=== PATIENT | male | born 1930 | race Caucasian/White ===

== ENCOUNTER 2017-05-26 06:40 | Outpatient (CLI) | payer MEDICARE, BC ==
[~2017-05-26] VITALS: Ht 180.3 cm; Wt 90.7 kg
[~2017-05-26 06:40] MED LIST: ASPI1TAB PO; ATOR40TA75 PO; ENAL5TAB PO; FINA5TAB2 PO; FLOM5CAP PO; VITA500T PO
[2017-05-26] MEDS ORDERED: PROPOFOL 200 MG/20 ML VIAL As Ordered ONE (07:06)
[2017-05-26] MEDS ORDERED: LIDOCAINE 2% INJ 100 MG/5 ML SDV (FOR ANES.) As Ordered ONE (07:09)
[2017-05-26] MEDS ORDERED: NS 1,000 ML IV SCH (07:15)
--- NOTE | 2017-05-26 08:00 | ROOR ---
Patient Name: Jacky Vitale Procedure Date: 05/26/2017 7:39 AM Date of : 1930 Age: 86 Room: [facility] Gender: Male Note Status: Finalized Procedure: Colonoscopy Indications: High risk colon cancer surveillance: Personal history of colonic polyps Providers: Jossue Fair Jr, MD Referring MD: AARON BISHOP MD Requesting Provider: Medicines: Propofol per Anesthesia Complications: No immediate complications. Procedure: Pre-Anesthesia Assessment: - Prior to the procedure, a History and Physical was performed, and patient medications and allergies were reviewed. The patient is competent. The risks and benefits of the procedure and the sedation options and risks were discussed with the patient. All questions were answered and informed consent was obtained. Patient identification and proposed procedure were verified by the physician and the nurse in the pre-procedure area and in the procedure room. Mental Status Examination: alert and oriented. Airway Examination: normal oropharyngeal airway and neck mobility. Respiratory Examination: clear to auscultation. CV Examination: normal. ASA Grade Assessment: II - A patient with mild systemic disease. After reviewing the risks and benefits, the patient was deemed in satisfactory condition to undergo the procedure. The anesthesia plan was to use moderate sedation / analgesia (conscious sedation). Immediately prior to administration of medications, the patient was re-assessed for adequacy to receive sedatives. The heart rate, respiratory rate, oxygen saturations, blood pressure, adequacy of pulmonary ventilation, and response to care were monitored throughout the procedure. The physical status of the patient was re-assessed after the procedure. The Colonoscope was introduced through the anus and advanced to the cecum, identified by appendiceal orifice and ileocecal valve. The colonoscopy was performed without difficulty. The patient tolerated the procedure well. The quality of the bowel preparation was fair. Findings: The perianal and digital rectal examinations were normal. Pertinent negatives include normal sphincter tone, no palpable rectal lesions and no anal lesion or abnormality was detected. Multiple small and large-mouthed diverticula were found in the sigmoid colon. Scattered small and large-mouthed diverticula were found in the descending colon, transverse colon and ascending colon. Two polyps were found in the descending colon and transverse colon. The polyps were small in size. These polyps were removed with a hot snare. Resection and retrieval were complete. The rectum, recto-sigmoid colon, cecum, appendiceal orifice and ileocecal valve appeared normal. Impression: - Preparation of the colon was fair. - Diverticulosis in the sigmoid colon. - Diverticulosis in the descending colon, in the transverse colon and in the ascending colon. - Two small polyps in the descending colon and in the transverse colon, removed with a hot snare. Resected and retrieved. - The rectum, recto-sigmoid colon, cecum, appendiceal orifice and ileocecal valve are normal. Recommendation: - Discharge patient to home (ambulatory). - Repeat colonoscopy in 5 years for surveillance. Jossue Fair MD Jossue Fair Jr, MD 05/26/2017 8:00:09 AM This report has been signed electronically. Number of Addenda: 0 Note Initiated On: 05/26/2017 7:39 AM Estimated Blood Loss: Estimated blood loss: none.
[2017-05-26 08:25] VITALS: BP 146/66
== END 2017-05-26 08:26 | disposition home or self-care (01) ==
LOC: M OPP 06:40
PROVIDERS: ATTEND Surgery
DX: Z12.11 Encounter for screening for malignant neoplasm of colon (principal); Z86.010 Personal history of colon polyps; K63.5 Polyp of colon; K57.30 Diverticulosis of large intestine without perforation or abscess without bleeding; I10 Essential (primary) hypertension; E78.5 Hyperlipidemia, unspecified; R06.02 Shortness of breath; R06.83 Snoring; N40.1 Benign prostatic hyperplasia with lower urinary tract symptoms; M62.830 Muscle spasm of back; Z86.19 Personal history of other infectious and parasitic diseases; Z79.82 Long term (current) use of aspirin; Z79.899 Other long term (current) drug therapy; Z80.6 Family history of leukemia; Z80.7 Family history of other malignant neoplasms of lymphoid, hematopoietic and related tissues

== ENCOUNTER → 2017-12-28 | Outpatient (CLI) | payer MEDICARE, BC | LOC: M SMT 09:59 | DX: C61 Malignant neoplasm of prostate (principal) | CPT/HCPCS: 84153 ==

== ENCOUNTER → 2018-01-27 | Outpatient (CLI) | payer MEDICARE, BC | LOC: M WUC 10:29 | DX: R06.00 Dyspnea, unspecified (principal); R91.1 Solitary pulmonary nodule; J84.10 Pulmonary fibrosis, unspecified | CPT/HCPCS: 71046 ==

== ENCOUNTER → 2018-08-22 | Outpatient (CLI) | payer MEDICARE, BC ==
[~2018-08-22] MED LIST changes: +FLOM0.4C39 PO; -FLOM5CAP PO
[2018-08-23 14:37] LABS: PSA % FREE 16.1 % (.); PSA FREE 1.22 ng/mL; PSA TOTAL 7.6 ng/mL (0.0-4.0)
== END ==
LOC: M SMT 10:16
PROVIDERS: ATTEND Nurse Practitioner Women's Health
DX: R97.20 Elevated prostate specific antigen [PSA] (principal); N40.1 Benign prostatic hyperplasia with lower urinary tract symptoms

== ENCOUNTER → 2018-11-03 | Outpatient (CLI) | payer MEDICARE, BC ==
--- NOTE | 2018-11-03 20:35 | REP ---
LUMBOSACRAL SPINE: Five views of the lumbosacral spine performed. There is no compression fracture. There is no spondylolysis. There is slight retrolisthesis of L2 on L3 and L3 on L4 likely due to posterior facet arthropathy. There is moderate diffuse spurring. There is moderate disc space narrowing and subchondral sclerosis at all levels with vacuum phenomenon noted at L1-2, L3-4, L4-5 and L5-S1. There is sclerosis and spurring at the posterior facets of L4-5 and L5-S1. The posterior elements are intact. IMPRESSION: Diffuse moderate degenerative changes. Electronically Signed by Mann Zaragoza MD 11/04/2018 06:40 P
== END ==
LOC: M WUC 16:24
PROVIDERS: ATTEND Internal Medicine
DX: M51.37 Other intervertebral disc degeneration, lumbosacral region (principal); M25.78 Osteophyte, vertebrae

== ENCOUNTER → 2019-10-13 | Outpatient (REF) | payer MEDICARE, BC ==
[~2019-10-13] MED LIST changes: -ASPI1TAB PO; +ASPI81TA26 PO
[2019-10-13 15:58] LABS: APPEARANCE, URINE MANUAL CLEAR (CLEAR); COLOR, URINE MANUAL LT YELLOW (YELLOW)
[2019-10-13 15:59] LABS: BILIRUBIN, URINE MANUAL NEGATIVE (NEGATIVE); GLUCOSE, URINE (UA) MANUAL NEGATIVE (NEGATIVE); KETONE, URINE MANUAL NEGATIVE (NEGATIVE); LEUKOCYTE ESTERASE, URINE MAN NEGATIVE (NEGATIVE); NITRITE, URINE MANUAL NEGATIVE (NEGATIVE); PROTEIN, URINE MANUAL 3+ mg/dL (NEGATIVE); UROBILINOGEN, URINE MANUAL NORMAL (NORMAL)
[2019-10-13 16:00] LABS: BLOOD URINE MANUAL POSITIVE (NEGATIVE)
[2019-10-13 16:01] LABS: WBC, URINE 0-1 /hpf (0-3)
[2019-10-13 16:02] LABS: BACTERIA, URINE SMALL AMOUNT; MUCUS, URINE SMALL AMOUNT (NEGATIVE); SQUAMOUS EPITHELIAL CELL URINE SMALL AMOUNT /hpf (SMALL AMT)
== END ==
LOC: M LAB REF 11:02
PROVIDERS: ATTEND Physician Assistant
DX: N39.0 Urinary tract infection, site not specified (principal)

== ENCOUNTER 2020-03-08 15:00 | Emergency (ER) | payer MEDICARE, BC ==
[~2020-03-08 15:00] MED LIST changes: +VITA-243 PO; -VITA500T PO
[2020-04-04 14:29] LABS: BASO % 0.4 % (0.0-1.0); EOS % 0.3 % (0.0-3.0); HEMATOCRIT 45.8 % (42.0-52.0); HEMOGLOBIN 15.3 g/dl (13.5-17.5); MEAN CORPUSCULAR HEMOGLOBIN 31.4 pg (27.0-33.0); MEAN CORPUSCULAR HGB CONC 33.4 g/dl (32.0-36.5); MONO # 1.2 10^3/uL (0.0-0.8); MONO % 11.3 % (0.0-5.0); NEUTROPHILS # 8.6 10^3/uL (1.5-8.5); NEUTROPHILS % 78.7 % (36.0-66.0); PLATELET COUNT, AUTOMATED 182 10^3/uL (150-450); RED BLOOD COUNT 4.87 10^6/uL (4.30-6.10)
[2020-04-15 08:14] LABS: BLOOD UREA NITROGEN 16 MG/DL (7-18); CREATININE FOR GFR 1.08 MG/DL (0.70-1.30); GLOMERULAR FILTRATION RATE > 60.0 (>35)
== END 2020-03-08 22:52 | disposition home or self-care (01) ==
LOC: M ED 15:00
DX: N21.0 Calculus in bladder (principal); I10 Essential (primary) hypertension; E78.5 Hyperlipidemia, unspecified; N40.0 Benign prostatic hyperplasia without lower urinary tract symptoms; Z79.899 Other long term (current) drug therapy; Z79.82 Long term (current) use of aspirin

== ENCOUNTER → 2020-03-10 | Outpatient (CLI) | payer MEDICARE, BC ==
[~2020-03-10] MED LIST changes: +ENAL5TA PO; -ENAL5TAB PO
[2020-04-07 03:37] LABS: HEMATOCRIT 42.8 % (42.0-52.0); HEMOGLOBIN 13.9 g/dl (13.5-17.5); INR 1.09; MEAN CORPUSCULAR HEMOGLOBIN 30.8 pg (27.0-33.0); MEAN CORPUSCULAR HGB CONC 32.5 g/dl (32.0-36.5); MEAN CORPUSCULAR VOLUME 94.9 fl (80.0-96.0); PLATELET COUNT, AUTOMATED 187 10^3/uL (150-450); PROTHROMBIN TIME 14.4 SECONDS (11.8-14.0); RED BLOOD COUNT 4.51 10^6/uL (4.30-6.10); WHITE BLOOD COUNT 10.1 10^3/uL (4.0-10.0)
[2020-04-07 03:38] LABS: PARTIAL THROMBOPLASTIN TIME 36.3 SECONDS (25.0-38.4)
--- NOTE | 2020-05-02 11:10 | REP ---
CHEST X-RAY: 2-VIEWS HISTORY: Bladder stones. Preoperative testing. This report was delayed due to a protracted episode of computer network disruption experienced by this facility. COMPARISON: 08/17/2018. FINDINGS: There is coarse linear fibrosis in the left base. The lungs are otherwise well- inflated and free of infiltrate. Pleural angles are sharp. Cardiomediastinal silhouette is unremarkable. The aorta is somewhat calcific. There are degenerative changes in the thoracic spine. Pulmonary vasculature is not increased. IMPRESSION: No active disease. MTDD
[2020-06-02 14:49] LABS: GLUCOSE, FASTING SEE SEPARATE REPORT
== END ==
LOC: M LAB 14:32
PROVIDERS: ATTEND Urology
DX: Z01.818 Encounter for other preprocedural examination (principal); N21.0 Calculus in bladder
CPT/HCPCS: 51798; 71046; 80048; 85027; 85610; 85730; G0463

== ENCOUNTER 2020-03-13 13:40 | Day surgery (SDC) | payer MEDICARE, BC ==
[2020-03-13] MEDS ORDERED: ONDANSETRON 4MG/2ML VIAL As Ordered ONE (13:47)
[2020-03-13] MEDS ORDERED: fentaNYL 100 MCG/2 ML INJECTION (J3010) As Ordered ONE ×3 (13:47→16:45)
[2020-03-13] MEDS ORDERED: METOCLOPRAMIDE INJ 10MG/2ML VIAL (J2765 PER 1) As Ordered ONE (13:47)
[2020-03-13] MEDS ORDERED: CONRAY-60 60% 50ML VIAL (Q9961) As Ordered ONE (13:53)
[2020-03-13] MEDS ORDERED: ZOSYN 3.375GM VIAL (J2543) As Ordered ONE ×2 (14:00→14:09)
[2020-03-13] MEDS ORDERED: FUROSEMIDE 100MG/10ML VIAL (J1940) As Ordered ONE (16:10)
[2020-03-13] MEDS ORDERED: oxyCODONE 5MG TAB As Ordered ONE (16:45)
[2020-05-07 15:11] LABS: Ca Ox Monohydrate 100 % (.); Size 8x6 mm (.)
--- NOTE | 2020-05-22 11:02 | RO ---
DATE OF PROCEDURE: March 13, 2020 PREOPERATIVE DIAGNOSIS: Bladder stone. POSTOPERATIVE DIAGNOSES: * Bladder stones. * Benign prostatic hyperplasia. PROCEDURES: * Cystoscopy. * Laser cystolitholapaxy. * Button transurethral electrovaporization of the prostate. SURGEON: Ry Lyons MD. DIRECTOR OF LABOR RELATIONS: None. ANESTHESIA: General. OPERATIVE INDICATIONS: This is an 89-year-old male who was found to have an approximately 4-5 cm bladder stone on a recent cystoscopy. He was brought to the operating room today for treatment. DESCRIPTION OF PROCEDURE: The patient was brought to the operating room and general anesthesia was induced. Culture specific antibiotics were infused. He was then placed in the dorsal lithotomy position and prepped, and draped in the usual sterile fashion. At this point, a cystoscope was inserted into the urethral meatus and advanced to the bladder using the visual obturator. Once inside the bladder, an approximately 4.5-cm stone was seen. The stone was fragmented into several smaller pieces using a 1000 micron laser fiber. All of the fragments were then removed using a Urovac evacuator. Once that was done, I made note of the very large median lobe that was significantly bleeding. I used a button electrode to vaporize the median lobe until it was completely flat. I then utilized the button coagulation current to get good hemostasis. Once there was good hemostasis, the resectoscope was removed and an 18-Arabic Mead catheter was inserted into the bladder. The balloon was filled with 15 mL of sterile water. This marked the conclusion of the procedure. The catheter was connected to gravity drainage. The patient was taken out of the dorsal lithotomy position, awakened from anesthesia, and transferred to the recovery room in stable condition. ESTIMATED BLOOD LOSS: 20 mL. COMPLICATIONS: None. SPECIMEN: Bladder stones. PLAN: The patient will follow up in the clinic in approximately one week for catheter removal. SENTHIL
== END 2020-03-13 20:00 | disposition home or self-care (01) ==
LOC: M SDC 13:40
PROVIDERS: ATTEND Urology
DX: N21.0 Calculus in bladder (principal); N40.1 Benign prostatic hyperplasia with lower urinary tract symptoms; I10 Essential (primary) hypertension; E78.5 Hyperlipidemia, unspecified; Z79.82 Long term (current) use of aspirin; Z79.899 Other long term (current) drug therapy
CPT/HCPCS: 52318; 52601; 82365; 88300; C1769; J1940; J2405; J2543; J2765; J3010

== ENCOUNTER 2020-10-15 06:37 | Emergency (ER) | payer MEDICARE, BC ==
[~2020-10-15] VITALS: Ht 180.3 cm; Wt 89.0 kg
[2020-10-15] MEDS ORDERED: SULF1TAB93 (06:54)
[2020-10-15] MEDS ORDERED: METO1TAB32 (06:54)
[2020-10-15] MEDS ORDERED: LIDOCAINE 2% 5ML JELLY UROJET TOP ONE (07:10)
--- NOTE | 2020-10-15 08:24 | REP ---
INDICATION: urinary retention, hematuria COMPARISON: None TECHNIQUE: Axial noncontrast images from the lung bases to the pubic symphysis with coronal and sagittal reformations. This CT examination was performed using the following dose reduction techniques: Automated exposure control, adjustment of mA and/or kv according to the patient's size, and use of iterative reconstruction technique. FINDINGS: The prostate gland is markedly enlarged with mass effect on the base of the bladder and measures roughly 6.6 cm diameter. A Mead catheter is identified within the collapsed bladder. The kidneys demonstrate mild chronic appearing perinephric stranding without significant hydroureteronephrosis or obstructing ureteral calculi. The right kidney includes multiple nonobstructing intrarenal calculi as well as 11 cm posterior exophytic cyst and 2.6 cm anterior cortical based hypodense lesion and 1 cm lateral cortical based hypodense lesion which may represent complex cysts. The left kidney demonstrates a subtle 1.4 cm isodense cortical based lesion at the midpole level (series 201; image 56) along with 2 cm upper pole hypodense lesion likely representing cyst. Liver, spleen, pancreas, gallbladder, and bilateral adrenal glands are relatively normal for noncontrast evaluation. The enteric system is without obstruction or acute inflammatory process. Colonic and significant sigmoid diverticulosis noted without acute diverticulitis. Normal terminal ileum and appendix are identified in the right lower quadrant. Further evaluation of the pelvis demonstrates small to moderate fat containing bilateral inguinal hernias. No ascites. No free air. No significant intraperitoneal or retroperitoneal adenopathy appreciated. Atherosclerotic changes to the aorta and vasculature noted without aneurysm. Musculoskeletal structures demonstrate degenerative changes. Lung bases are clear. IMPRESSION: 1. Significant prostatomegaly with mass effect on the base of the bladder. 2. Relatively nonacute renal findings as described above. Follow-up pre and postcontrast CT of the abdomen should be considered to differentiate between complex cysts and possible renal mass lesion. 3. Diverticulosis without acute diverticulitis. 4. No ascites, focal inflammatory stranding, or adenopathy appreciated. <Electronically signed by Xavier Doe > 10/15/20 [id number]
[2020-10-15 08:45] LABS: BASO % 0.3 % (0.0-1.0); EOS % 0.2 % (0.0-3.0); HEMATOCRIT 45.4 % (42.0-52.0); LYMPH # 0.6 10^3/uL (1.5-5.0); LYMPH % 5.4 % (24.0-44.0); MEAN CORPUSCULAR HEMOGLOBIN 30.5 pg (27.0-33.0); MEAN CORPUSCULAR VOLUME 92.3 fl (80.0-96.0); MONO % 8.5 % (2.0-8.0); NEUTROPHILS # 10.1 10^3/uL (1.5-8.5); NEUTROPHILS % 85.1 % (36.0-66.0); PLATELET COUNT, AUTOMATED 186 10^3/uL (150-450); RED BLOOD COUNT 4.92 10^6/uL (4.30-6.10); WHITE BLOOD COUNT 11.8 10^3/uL (4.0-10.0)
[2020-10-15 08:48] VITALS: BP 136/72
--- NOTE | 2020-10-16 08:24 | ED PDOC ---
Post-Departure Follow-Up ct abd/p faxed to dr aurelio negro for fu Kristine Mejia MD Oct 16, 2020 08:24
== END 2020-10-15 09:51 | disposition home or self-care (01) ==
LOC: M ED 06:37
DX: R33.9 Retention of urine, unspecified (principal); R31.9 Hematuria, unspecified; K57.30 Diverticulosis of large intestine without perforation or abscess without bleeding; N40.1 Benign prostatic hyperplasia with lower urinary tract symptoms; N20.0 Calculus of kidney; N28.1 Cyst of kidney, acquired; I10 Essential (primary) hypertension; E78.5 Hyperlipidemia, unspecified

== ENCOUNTER 2020-10-19 19:04 | Emergency (ER) | payer MEDICARE, BC ==
[~2020-10-19] VITALS: Ht 180.3 cm; Wt 88.7 kg
[~2020-10-19 19:04] MED LIST changes: +METO1TAB32; +SULF1TAB93
[2020-10-19] MEDS ORDERED: ACET-838 PO (19:17)
[2020-10-19] MEDS ORDERED: AZO1CAP2 PO (19:17)
--- NOTE | 2020-10-19 21:17 | REPVR ---
PROCEDURE INFORMATION: Exam: US Pelvis Limited, Bladder Exam date and time: 10/19/2020 8:54 PM Age: 89 years old Clinical indication: Retention of urine; Additional info: Blood clots in bray, unable to urinate TECHNIQUE: Imaging protocol: Real-time pelvic ultrasound with image documentation. COMPARISON: CT ABD PELVIS W/O CONTRAST 10/15/2020 8:00 AM FINDINGS: Urinary bladder: The bladder is decompressed and not evaluated. There is faint visualization of a Bray catheter in the region of the bladder. IMPRESSION: Fully decompressed bladder with Bray catheter. Electronically signed by: Rey Sims On 10/19/2020 21:17:56 PM
[2020-10-19 22:01] VITALS: BP 127/60
== END 2020-10-19 22:08 | disposition home or self-care (01) ==
LOC: M ED 19:04
DX: R31.9 Hematuria, unspecified (principal); T83.098A Other mechanical complication of other urinary catheter, initial encounter; X58.XXXA Exposure to other specified factors, initial encounter; Y92.89 Other specified places as the place of occurrence of the external cause; I10 Essential (primary) hypertension; E78.5 Hyperlipidemia, unspecified; N40.0 Benign prostatic hyperplasia without lower urinary tract symptoms; Z79.899 Other long term (current) drug therapy

== ENCOUNTER → 2020-12-08 | Outpatient (CLI) | payer MEDICARE, BC ==
[~2020-12-08] MED LIST changes: +ACET32TAB PO; +AZO1CAP2 PO
--- NOTE | 2020-12-08 11:32 | REP ---
INDICATION: ACUTE BRONCHITIS COMPARISON: 03/10/2020. TECHNIQUE: PA/Lateral FINDINGS: Small area of ill-defined density in the inferior lingula is compatible with a small area of atelectasis or infiltrate. The right lung appears clear. The heart is normal in size. There is calcification of the thoracic aorta. The mediastinal silhouette is unchanged. There is mild biapical pleural thickening unchanged. There are mild degenerative changes of the spine without compression deformity. IMPRESSION: Mild atelectasis or infiltrate in the lingula. <Electronically signed by Mann Zaragoza > 12/08/20 [id number]
== END ==
LOC: M WUC 10:04
PROVIDERS: ATTEND Physician Assistant
DX: R91.8 Other nonspecific abnormal finding of lung field (principal); J20.9 Acute bronchitis, unspecified

== ENCOUNTER 2021-04-19 13:46 | Emergency (ER) | payer MEDICARE, BC ==
[~2021-04-19] VITALS: Ht 180.3 cm; Wt 88.6 kg
[~2021-04-19 13:46] MED LIST changes: +BACTDSTA; -SULF1TAB93
[2021-04-19 15:38] LABS: BASO # 0.1 10^3/uL (0.0-0.2); BASO % 0.6 % (0.0-1.0); EOS % 0.4 % (0.0-3.0); HEMATOCRIT 44.3 % (42.0-52.0); HEMOGLOBIN 14.6 g/dl (13.5-17.5); LYMPH # 1.1 10^3/uL (1.5-5.0); LYMPH % 13.9 % (24.0-44.0); MEAN CORPUSCULAR HEMOGLOBIN 30.5 pg (27.0-33.0); MEAN CORPUSCULAR VOLUME 92.5 fl (80.0-96.0); MONO # 1.3 10^3/uL (0.0-0.8); MONO % 15.5 % (2.0-8.0); NEUTROPHILS # 5.7 10^3/uL (1.5-8.5); NEUTROPHILS % 69.1 % (36.0-66.0); PLATELET COUNT, AUTOMATED 179 10^3/uL (150-450); RED BLOOD COUNT 4.79 10^6/uL (4.30-6.10); WHITE BLOOD COUNT 8.2 10^3/uL (4.0-10.0)
[2021-04-19 15:57] LABS: BLOOD UREA NITROGEN 21 MG/DL (7-18); CALCIUM LEVEL 8.6 MG/DL (8.8-10.2); CARBON DIOXIDE LEVEL 29 MEQ/L (21-32); CHLORIDE LEVEL 109 MEQ/L (98-107); CREATININE FOR GFR 0.98 MG/DL (0.70-1.30); GLOMERULAR FILTRATION RATE > 60.0 (>35); GLUCOSE, FASTING 140 MG/DL (70-100); POTASSIUM SERUM 3.9 MEQ/L (3.5-5.1); SODIUM LEVEL 143 MEQ/L (136-145)
--- NOTE | 2021-04-19 17:15 | REP ---
INDICATION: r/o DVT. COMPARISON: None. TECHNIQUE: 2D and color Doppler ultrasound evaluation of the lower extremity venous system was performed. FINDINGS: The evaluation of the venous system of both lower extremities demonstrates no findings to suggest deep venous thrombosis. IMPRESSION: No evidence of deep venous thrombosis of either lower extremity. <Electronically signed by Jesus Bhatia > 04/19/21 [id number]
[2021-04-19 17:40] VITALS: BP 128/70
== END 2021-04-19 17:25 | disposition home or self-care (01) ==
LOC: M ED 13:46
DX: U07.1 COVID-19 (principal); R60.9 Edema, unspecified; I10 Essential (primary) hypertension; G47.33 Obstructive sleep apnea (adult) (pediatric); N40.0 Benign prostatic hyperplasia without lower urinary tract symptoms; Z79.899 Other long term (current) drug therapy
CPT/HCPCS: 36415; 80048; 85025; 93970; 99284; M0243

== ENCOUNTER 2021-04-19 17:40 | Outpatient (CLI) | payer MEDICARE, BC ==
[~2021-04-19] VITALS: Ht 180.3 cm; Wt 88.7 kg
--- NOTE | 2021-04-19 17:16 | CR.PDOC ---
General Date of Consultation: Apr 19, 2021 Consultation REASON FOR CONSULTATION/CHIEF COMPLAINT: COVID-19 HISTORY OF PRESENT ILLNESS: Patient is an 89-year-old male presenting to the ER after he was reported to have positive Covid results this morning. Patient states that his only complaint is a sore throat he denies any shortness of breath palpitations fevers chills nausea vomiting or diarrhea. Patient has a history of hypertension kidney stones benign prostatic hyperplasia. He was given information on the region [place] monoclonal antibody for Covid. Risks were explained to him including anaphylaxis and in severe cases . Patient understood the risks and benefits. Consent was signed prior to the administration of monoclonal antibody. ALLERGIES: Please see below. HOME MEDICATIONS: Please see below. PAST MEDICAL HISTORY: Hypertension kidney stones benign prostatic hyperplasia, elevated PSA with a previous negative prostate biopsy recently followed by Dr. Eva mendez. Patient was planned for cystoscopy. Needs to follow-up. PAST SURGICAL HISTORY: Tonsillectomy in 1965 FAMILY HISTORY: Father has a history of heart disease, shingles at age 85 Mother age 72 from lymphoma SOCIAL HISTORY: Patient denies smoking Patient denies etoh use Patient denies illicit drug use REVIEW OF SYSTEMS: 10 point ROS conducted, relevant findings are noted in the HPI PHYSICAL EXAMINATION: VITAL SIGNS: please see below General: NAD, comfortable HEENT: PERRLA, EOMI, sclerae clear Neck: supple, normal ROM, no JVD Respiratory: lungs CTAB, no wheeze, no rales, no crackles CVS: RRR, normal S1, S2, no murmurs Abdo: soft, no masses, no hepatosplenomegaly, BS+, no rebound tenderness Extremities: trace bilateral edema no cyanosis pulses 2+ bilateral MSK: no joint deformities, normal ROM Neuro: no focal neuro deficits, moving all 4 extremities, CN2-12 intact. Strength 5/5 in all 4 extremities. No nystagmus. Psych: calm, cooperative, AAO x 3 LABORATORY DATA: Please see below. Bilateral venous duplex (04/19/21): No evidence of deep venous thrombosis of either lower extremity. ASSESSMENT/PLAN: COVID-19: Patient was informed about monoclonal antibodies. Consent was signed after explanation of risks versus benefits including anaphylaxis. Patient understood and verbalized understanding. Patient will be transferred to [facility] and to receive monoclonal antibody infusion. Trace LE edema: negative bilateral LE duplex. Dispo: DC home after administration of monoclonal antibodies. Allergies Coded Allergies: No Known Drug Allergies (Verified Allergy, Unknown, 04/16/20) Home Medications Scheduled Acetaminophen (Acetaminophen) 325 Mg Tablet, 2 TAB PO Q6HP for 30 Days, #30 (Reported) Atorvastatin Calcium (Atorvastatin Calcium) 40 Mg Tab, 20 MG PO DAILY, (Reported) Enalapril Maleate (Enalapril Maleate) 5 Mg Tab, 5 MG PO DAILY, (Reported) Finasteride (Finasteride) 5 Mg Tab, 5 MG PO DAILY, (Reported) Pumpkin Seed Extract/Soy Germ (Azo Bladder Control Capsule) 300 Mg Capsule, 1 CAP PO BID for 30 Days, #60 (Reported) Tamsulosin HCl (Flomax) 0.4 Mg Cap, 0.4 MG PO DAILY, (Reported) Miscellaneous Medications Metoprolol Succinate (Metoprolol Succinate) 25 Mg Tab.er.24h, (Reported) FRANCI RIVERA MD Apr 19, 2021 17:16
[~2021-04-19 17:40] MED LIST changes: +ALBUTEROL 90 MCG/ACT 8GM HFA INHALER INH PRN; +ALBUTEROL SULFATE 2.5 MG/0.5 ML INH NEB SOLN INH PRN; +EPINEPHrine INJ 1 MG/ML 1ML AMP IM PRN; +diphenhydrAMINE 50MG/ML VIAL (J1200) IV PRN; +methylPREDNISolone 125MG 2ML VIAL IV PRN
[2021-04-19 17:45] VITALS: BP 174/78
[2021-04-19] MEDS ORDERED: NS 1,000 ML IV SCH (18:00)
[2021-04-19 18:29] VITALS: BP 160/78
[2021-04-19] MEDS ORDERED: CASIRIVIMAB/IMDEVIMAB 1,200 MG in NS 250 ML IV ONE (18:30)
[2021-04-19 19:02] VITALS: BP 168/76
[2021-04-19 19:57] VITALS: BP 172/81
== END 2021-04-19 20:07 | disposition home or self-care (01) ==
LOC: M MS4PR 17:40 → M OPCLI4 17:40 → M 4MAIN 17:40 → M OPCLI4 20:07
PROVIDERS: ATTEND Family Medicine
DX: U07.1 COVID-19 (principal)

== ENCOUNTER → 2022-03-23 | Outpatient (CLI) | payer MEDICARE, BC ==
[~2022-03-23] MED LIST changes: -ALBUTEROL 90 MCG/ACT 8GM HFA INHALER INH PRN; -ALBUTEROL SULFATE 2.5 MG/0.5 ML INH NEB SOLN INH PRN; -EPINEPHrine INJ 1 MG/ML 1ML AMP IM PRN; -diphenhydrAMINE 50MG/ML VIAL (J1200) IV PRN; -methylPREDNISolone 125MG 2ML VIAL IV PRN
== END ==
LOC: M PLAIMG 15:51
PROVIDERS: ATTEND Urology
DX: N21.0 Calculus in bladder (principal)